=== PATIENT | male | born 1990 | race Caucasian/White ===

== ENCOUNTER 2024-06-11 15:37 | Emergency (ER) | payer SELFPAY ==
[~2024-06-11] VITALS: Ht 157.5 cm; Wt 63.2 kg
[2024-06-11 15:44] VITALS: BP 120/76; PULSE 81; RESP 14; TEMP 98; O2SAT 97
[2024-06-11 16:22] VITALS: O2SAT 97
[2024-06-11 16:36] LABS: BASOPHILS # (AUTO) 0.1 K/uL (0.00-0.22); BASOPHILS % (AUTO) 0.7 % (0.0-2.0); EOSINOPHILS % (AUTO) 0.3 % (0.0-4.0); HEMATOCRIT 53.6 % (36-52); HEMOGLOBIN 18.6 g/dL (12.0-18.0); LYMPHOCYTES # (AUTO) 2.2 K/uL (2.0-11.5); LYMPHOCYTES % (AUTO) 13.3 % (20.5-51.1); MEAN CORPUSCULAR HEMOGLOBIN 31 pg (27-31); MEAN CORPUSCULAR HGB CONC 35 g/dL (33-37); MEAN CORPUSCULAR VOLUME 88.2 fL (80-94); MONOCYTES # (AUTO) 1.3 K/uL (0.8-1.0); MONOCYTES % (AUTO) 7.9 % (1.7-9.3); NEUTROPHILS # (AUTO) 13.1 K/uL (1.8-7.7); NEUTROPHILS % (AUTO) 77.8 % (42.2-75.2); PLATELET COUNT (AUTO) 263 K/uL (140-450); RED BLOOD CELL COUNT(AUTO) 6.08 MIL/uL (4.20-6.10); RED CELL DISTRIBUTION WIDTH 13.6 % (11.6-13.7); WHITE BLOOD COUNT (AUTO) 16.8 K/uL (4.8-10.8)
[2024-06-11 16:39] LABS: APPEARANCE,URINE TURBID (CLEAR); BILIRUBIN,URINE 2+ (NEGATIVE); BLOOD, URINE NEGATIVE (NEGATIVE); COLOR,URINE ORANGE (YELLOW); LEUKOCYTE ESTERASE ,URINE TRACE (NEGATIVE); NITRITE, URINE NEGATIVE (NEGATIVE); PROTEIN,URINE 2+ (NEGATIVE); UGLUCOSE NEGATIVE (NEGATIVE); UROBILINOGEN,URINE 0.2 EU/dL (0.2 - 1)
[2024-06-11 16:54] LABS: BACTERIA,URINE 10-30 (MOD) /HPF (None Seen); MUCUS,URINE 1+ /LPF (None Seen); RBC,URINE 0-5 /HPF (0-5); SQUAMOUS EPITHELIAL CELL,UR 0-3 (FEW) /LPF (0-3 (FEW))
[2024-06-11 16:55] LABS: ICTOTEST NEGATIVE (NEGATIVE)
[2024-06-11 16:58] LABS: ALBUMIN 5.8 g/dL (3.4-5.0); BILIRUBIN,DIRECT 0.2 mg/dL (0.0-0.3); TOTAL BILIRUBIN 1.3 mg/dL (0.0-1.0); TOTAL PROTEIN, SERUM 10.6 g/dL (6.4-8.2)
[2024-06-11] MEDS: ONDANSETRON 4 MG/2 ML VIAL IVP ONE (17:06)
[2024-06-11] MEDS: KETOROLAC 30 MG/ML VIAL IVP ONE (17:07)
[2024-06-11 17:08] LABS: ANION GAP 19.1 (8-16); CALCIUM 10.7 mg/dL (8.5-10.1); CARBON DIOXIDE 27.6 mmol/L (21-32); CREATININE 1.9 mg/dL (0.6-1.3); POTASSIUM 3.7 mmol/L (3.5-5.1)
[2024-06-11] MEDS ORDERED: ONDA-188 PO (18:10)
[2024-06-11] MEDS: NACL 0.9% 1,000 ML IV ONE (18:34)
[2024-06-11 18:35] VITALS: BP 112/69; PULSE 78; RESP 14; TEMP 98; O2SAT 97
== END 2024-06-11 19:16 | disposition home or self-care (01) ==
LOC: MED 15:37
DX: R10.13 Epigastric pain (principal); R10.11 Right upper quadrant pain; R11.2 Nausea with vomiting, unspecified; M54.9 Dorsalgia, unspecified
CPT/HCPCS: 36415; 74176; 76705; 80048; 80076; 81001; 83690; 85025; 87086; 96361; 96374; 96375; 99285; J1885; J2405; J7030

== ENCOUNTER 2024-06-12 20:12 | Inpatient (IN) | payer MEDICAID ==
[~2024-06-12] VITALS: Ht 162.6 cm; Wt 69.9 kg
[~2024-06-12 20:12] MED LIST: ONDA-188 PO
[2024-06-12 20:15] VITALS: BP 115/78; PULSE 71; RESP 20; TEMP 98.6; O2SAT 98
[2024-06-12] MEDS: NACL 0.9% 2,000 ML IV ONE (22:19)
[2024-06-12] MEDS: KETOROLAC 30 MG/ML VIAL IVP ONE (22:31)
[2024-06-12] MEDS: LORazepam 2 MG/ML VIAL IVP ONE (22:32)
[2024-06-12 22:56] LABS: BASOPHILS # (AUTO) 0.1 K/uL (0.00-0.22); BASOPHILS % (AUTO) 0.4 % (0.0-2.0); HEMATOCRIT 49.1 % (36-52); LYMPHOCYTES # (AUTO) 1.7 K/uL (2.0-11.5); LYMPHOCYTES % (AUTO) 9.2 % (20.5-51.1); MEAN CORPUSCULAR HEMOGLOBIN 30 pg (27-31); MEAN CORPUSCULAR HGB CONC 35 g/dL (33-37); MONOCYTES # (AUTO) 1.1 K/uL (0.8-1.0); MONOCYTES % (AUTO) 6.1 % (1.7-9.3); NEUTROPHILS # (AUTO) 15.3 K/uL (1.8-7.7); NEUTROPHILS % (AUTO) 84.3 % (42.2-75.2); PLATELET COUNT (AUTO) 250 K/uL (140-450); RED BLOOD CELL COUNT(AUTO) 5.65 MIL/uL (4.20-6.10); RED CELL DISTRIBUTION WIDTH 13.6 % (11.6-13.7); WHITE BLOOD COUNT (AUTO) 18.2 K/uL (4.8-10.8)
[2024-06-13 00:32] LABS: APPEARANCE,URINE CLEAR (CLEAR); BILIRUBIN,URINE 1+ (NEGATIVE); BLOOD, URINE 3+ (NEGATIVE); COLOR,URINE YELLOW (YELLOW); LEUKOCYTE ESTERASE ,URINE TRACE (NEGATIVE); NITRITE, URINE POSITIVE (NEGATIVE); PH,URINE 5.5 (5.0-9.0); PROTEIN,URINE 2+ (NEGATIVE); UGLUCOSE NEGATIVE (NEGATIVE); UROBILINOGEN,URINE 0.2 EU/dL (0.2 - 1)
[2024-06-13 00:45] LABS: CANNABINOID, URINE POSITIVE ng/mL (NEG <=50)
[2024-06-13 00:46] LABS: AMPHETAMINE, URINE NEGATIVE ng/ml (NEG <=1000); BARBITURATE, URINE NEGATIVE ng/ml (NEG <=200); BENZODIAZEPINE, URINE POSITIVE ng/mL (NEG <=200); COCAINE, URINE NEGATIVE ng/mL (NEG <=300); OPIATE, URINE NEGATIVE ng/mL (NEG <=2000); PHENCYCLIDINE SCREEN,URINE NEGATIVE ng/mL (NEG <=25)
[2024-06-13 00:57] LABS: ALBUMIN 4.9 g/dL (3.4-5.0); ANION GAP 18.5 (8-16); CALCIUM 9.3 mg/dL (8.5-10.1); CARBON DIOXIDE 23.6 mmol/L (21-32); CREATININE 3.5 mg/dL (0.6-1.3); MAGNESIUM 2.7 mg/dL (1.8-2.4); POTASSIUM 3.1 mmol/L (3.5-5.1); TOTAL BILIRUBIN 1.4 mg/dL (0.0-1.0); TOTAL PROTEIN, SERUM 8.9 g/dL (6.4-8.2)
[2024-06-13 01:01] LABS: ICTOTEST POSITIVE (NEGATIVE)
[2024-06-13 01:02] LABS: BACTERIA,URINE 1+ /HPF (None Seen); MUCUS,URINE 1+ /LPF (None Seen); SQUAMOUS EPITHELIAL CELL,UR F /LPF (0-3 (FEW))
[2024-06-13 01:03] LABS: HYALINE CASTS, URINE 0-10 /LPF (None Seen)
[2024-06-13] MEDS ORDERED: cefTRIAXone 1,000 MG VIAL ONE (01:56)
[2024-06-13] MEDS: NACL 0.9% 1,000 ML IV ONE (01:58)
[2024-06-13] MEDS ORDERED: HYDROcodone/APAP 5/325 MG 1 TAB TAB PO PRN (02:45)
[2024-06-13] MEDS ORDERED: POTASSIUM CHLORIDE 10 MEQ TABER PO ONE (02:45)
[2024-06-13] MEDS ORDERED: ONDANSETRON 4 MG/2 ML VIAL IVP PRN (02:45)
[2024-06-13] MEDS: KCL 20 MEQ IN 100 mL PREMIX 100 ML IV ONE (02:54)
[2024-06-13 03:56] LABS: CKMB RELATIVE INDEX 0.7 (0.0-2.5); CREATINE KINASE MB 3.7 ng/mL (0-3.6)
[2024-06-13] MEDS: NACL 0.9% 1,000 ML IV SCH ×2 (04:57→17:45)
[2024-06-13 06:21] VITALS: O2SAT 98
[2024-06-13 07:50] LABS: BASOPHILS # (AUTO) 0.1 K/uL (0.00-0.22); BASOPHILS % (AUTO) 0.4 % (0.0-2.0); EOSINOPHILS % (AUTO) 0.2 % (0.0-4.0); HEMATOCRIT 42.3 % (36-52); HEMOGLOBIN 14.7 g/dL (12.0-18.0); LYMPHOCYTES # (AUTO) 2.1 K/uL (2.0-11.5); LYMPHOCYTES % (AUTO) 17.3 % (20.5-51.1); MEAN CORPUSCULAR HEMOGLOBIN 30 pg (27-31); MEAN CORPUSCULAR HGB CONC 35 g/dL (33-37); MEAN CORPUSCULAR VOLUME 86.7 fL (80-94); MONOCYTES # (AUTO) 1.2 K/uL (0.8-1.0); MONOCYTES % (AUTO) 10.3 % (1.7-9.3); NEUTROPHILS # (AUTO) 8.7 K/uL (1.8-7.7); NEUTROPHILS % (AUTO) 71.8 % (42.2-75.2); PLATELET COUNT (AUTO) 209 K/uL (140-450); RED BLOOD CELL COUNT(AUTO) 4.88 MIL/uL (4.20-6.10); RED CELL DISTRIBUTION WIDTH 13.4 % (11.6-13.7); WHITE BLOOD COUNT (AUTO) 12.1 K/uL (4.8-10.8)
[2024-06-13 07:59] LABS: ANION GAP 13.2 (8-16); CALCIUM 8.1 mg/dL (8.5-10.1); CARBON DIOXIDE 24.5 mmol/L (21-32); CREATININE 1.5 mg/dL (0.6-1.3); POTASSIUM 3.7 mmol/L (3.5-5.1)
[2024-06-13 08:17] VITALS: O2SAT 98
[2024-06-13 10:00] VITALS: PULSE 85; RESP 18; O2SAT 98
[2024-06-13 12:24] VITALS: PULSE 85; RESP 18; O2SAT 98
[2024-06-13 16:00] VITALS: BP 116/56; PULSE 71; PULSE 73; RESP 17; TEMP 98; O2SAT 96
[2024-06-13 20:00] VITALS: BP 101/55; PULSE 66; PULSE 83; RESP 18; TEMP 98.5; O2SAT 96
[2024-06-14] VITALS: BP 102/43; PULSE 62; PULSE 66; RESP 18; TEMP 98; O2SAT 93
[2024-06-14 03:42] LABS: BASOPHILS # (AUTO) 0.1 K/uL (0.00-0.22); BASOPHILS % (AUTO) 0.7 % (0.0-2.0); EOSINOPHILS # (AUTO) 0.1 K/uL (0-0.4); EOSINOPHILS % (AUTO) 1.2 % (0.0-4.0); HEMATOCRIT 40.4 % (36-52); HEMOGLOBIN 14.2 g/dL (12.0-18.0); LYMPHOCYTES # (AUTO) 2.4 K/uL (2.0-11.5); LYMPHOCYTES % (AUTO) 31.5 % (20.5-51.1); MEAN CORPUSCULAR HEMOGLOBIN 31 pg (27-31); MEAN CORPUSCULAR HGB CONC 35 g/dL (33-37); MEAN CORPUSCULAR VOLUME 87.9 fL (80-94); MONOCYTES # (AUTO) 0.8 K/uL (0.8-1.0); MONOCYTES % (AUTO) 10.5 % (1.7-9.3); NEUTROPHILS # (AUTO) 4.3 K/uL (1.8-7.7); NEUTROPHILS % (AUTO) 56.1 % (42.2-75.2); PLATELET COUNT (AUTO) 185 K/uL (140-450); RED CELL DISTRIBUTION WIDTH 13.6 % (11.6-13.7); WHITE BLOOD COUNT (AUTO) 7.7 K/uL (4.8-10.8)
[2024-06-14 04:00] VITALS: BP 99/56; PULSE 57; PULSE 62; RESP 18; TEMP 98; O2SAT 94
[2024-06-14 04:02] LABS: ANION GAP 9.9 (8-16); CALCIUM 8.3 mg/dL (8.5-10.1); CARBON DIOXIDE 27.2 mmol/L (21-32); POTASSIUM 4.1 mmol/L (3.5-5.1)
[2024-06-14 04:05] LABS: ALBUMIN 3.5 g/dL (3.4-5.0); BILIRUBIN,DIRECT 0.3 mg/dL (0.0-0.3); TOTAL BILIRUBIN 1.5 mg/dL (0.0-1.0); TOTAL PROTEIN, SERUM 6.5 g/dL (6.4-8.2)
[2024-06-14 04:07] LABS: MAGNESIUM 2.4 mg/dL (1.8-2.4); PHOSPHORUS 1.8 mg/dL (2.5-4.9)
[2024-06-14 05:35] LABS: CKMB RELATIVE INDEX 0.4 (0.0-2.5)
[2024-06-14] MEDS ORDERED: NACL 0.9% 1,000 ML IV ONE (06:55)
[2024-06-14 08:00] VITALS: BP 109/58; PULSE 66; PULSE 68; RESP 18; TEMP 97.5; O2SAT 98
[2024-06-14] MEDS ORDERED: NACL 0.9% 500 ML IV SCH (10:30)
[2024-06-14 12:00] VITALS: BP 114/53; PULSE 69; RESP 16; TEMP 97; O2SAT 98
[2024-06-14 15:28] VITALS: BP 114/53; PULSE 92; RESP 16; TEMP 97
== END 2024-06-14 16:26 | disposition home or self-care (01) | DRG 351 ==
LOC: MED 20:12 → MTU 06-13 02:41 → MMU 06-13 08:48
PROVIDERS: ADMIT Student in an Organized Health Care Education/Training Program; ATTEND Student in an Organized Health Care Education/Training Program
DX: M60.9 Myositis, unspecified (principal); N17.0 Acute kidney failure with tubular necrosis; E86.0 Dehydration; E86.1 Hypovolemia; E87.1 Hypo-osmolality and hyponatremia; E80.6 Other disorders of bilirubin metabolism; E83.42 Hypomagnesemia; E87.6 Hypokalemia; N39.0 Urinary tract infection, site not specified; F17.210 Nicotine dependence, cigarettes, uncomplicated; Z79.899 Other long term (current) drug therapy
CPT/HCPCS: 36415; 76770; 80048; 80053; 80076; 80305; 81001; 82550; 82553; 83735; 84100; 85025; 87081; 87086; 96361; 96365; 96375; 99291; J0696; J1885; J2060; J3480; J7060; Q0092